=== PATIENT | male | born 1945 | race Caucasian/White ===

== ENCOUNTER 2018-07-04 14:13 | Outpatient (CLI) | payer MEDICARE, OTHER ==
--- NOTE | 2018-07-04 16:29 | RAD ---
LUMBAR SPINE RADIOGRAPHS TWO VIEWS: Date: 07-04-18 Provided Clinical History: Back pain. FINDINGS: No comparisons. Five non-rib bearing lumbar type vertebral bodies are present. Prominent superior endplate compressio n deformity involving L1. Vertebral body heights appear otherwise preserved. Lower lumbar facet degen erative changes are mild. Vascular calcification is seen. IMPRESSION: 1. Age indeterminate prominence superior endplate compression deformity of L1. 2. Lower lumbar spine facet arthritis. POS: [facility]
== END 2018-07-04 14:14 | disposition home or self-care (01) ==
LOC: SCSRAD 14:13
PROVIDERS: ATTEND Family Medicine
DX: S32.001S Stable burst fracture of unspecified lumbar vertebra, sequela (principal); Z11.59 Encounter for screening for other viral diseases; Z12.5 Encounter for screening for malignant neoplasm of prostate; M46.96 Unspecified inflammatory spondylopathy, lumbar region; M43.8X6 Other specified deforming dorsopathies, lumbar region
CPT/HCPCS: 36415; 72100; 87521; G0103

== ENCOUNTER 2018-08-22 09:26 | Outpatient (CLI) | payer MEDICARE, OTHER ==
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
== END 2018-08-22 09:27 | disposition home or self-care (01) ==
LOC: TBSIIMAG 09:26
PROVIDERS: ATTEND Neurological Surgery
DX: S32.011D Stable burst fracture of first lumbar vertebra, subsequent encounter for fracture with routine healing (principal); S22.081D Stable burst fracture of T11-T12 vertebra, subsequent encounter for fracture with routine healing; M47.816 Spondylosis without myelopathy or radiculopathy, lumbar region; M48.061 Spinal stenosis, lumbar region without neurogenic claudication
CPT/HCPCS: 72131

== ENCOUNTER 2018-09-04 08:02 | Outpatient (CLI) | payer MEDICARE, OTHER ==
--- NOTE | 2018-09-04 09:55 | HP ---
HISTORY OF PRESENT ILLNESS: Mr. Ken Medrano is a very pleasant 73-year-old gentleman, who presents to the [facility] for evaluation of a wound of the left inferior buttock subsequent to spontaneous rupture of an abscess. Another abscess of the left buttock was drained intraoperatively on 05/25/2018. The patient has been receiving dressing changes of Promogran for the wound of the left inferior buttock with the assistance of Home Health. The patient's states that Mr. Medrano will no longer be eligible for home health since he is participating in physical therapy. PAST MEDICAL HISTORY: 1. Diabetes mellitus, type 2. 2. Hypertension. 3. Coronary artery disease. 4. Anemia. PAST SURGICAL HISTORY: 1. Coronary artery bypass grafting x3/aortic valve replacement. 2. Incision and drainage of abscess of left buttock at [facility] in [place], [place] on 05/26/2018. 3. Prostatectomy in 2007. MEDICATIONS: 1. Atorvastatin. 2. Coreg. 3. Lisinopril/HCTZ. 4. Multivitamin. 5. Vitamin D3. 6. Aspirin 81 mg. 7. NovoLog. 8. Levemir. ALLERGIES: NO KNOWN DIAGNOSED ALLERGIES. SOCIAL HISTORY: Social history is negative for tobacco or EtOH use. FAMILY HISTORY: Family history is negative for diabetes mellitus or coronary artery disease. PHYSICAL EXAMINATION: VITAL SIGNS: Temperature 98.0, pulse 60, respirations 21, blood pressure 133/ 71. Accu-Chek 180. GENERAL: A 73-year-old gentleman, sitting on chair in examination room, in no acute distress. HEENT: Normocephalic and atraumatic. NECK: No nuchal rigidity. CHEST: Clear to auscultation. CV: Regular rate and rhythm. ABDOMEN: Soft. EXTREMITIES: No clubbing or cyanosis. NEUROLOGIC: Grossly nonfocal. BACK: A wound of the left inferior buttock is present, which measures approximately 0.8 x 0.2 cm. The depth of the wound is approximately 0.8 cm. Granulation tissue is present within the wound margins. Nonviable tissue present within the wound margins was debrided with an excisional full-thickness debridement. Moderate serous drainage is associated with the wound. No purulent drainage is associated with the wound. No erythema of the skin surrounding the wound is present. No maceration of the skin of the periwound is noted. ASSESSMENT AND PLAN: 1. Left inferior buttock wound as described above. Dressing changes of Promogran and Allevyn Border will be continued 3 times per week after cleansing and irrigation with the assistance of the patient's . No antibiotics will be prescribed today based upon the appearance of the wound. I will see Mr. Medrano again in 1 to 2 weeks. 2. Diabetes mellitus. The patient's Accu-Chek in clinic today is 180. The patient has been reminded that for optimal wound healing his blood glucoses should remain below 150. 3. Hypertension. 4. Coronary artery disease. 5. Anemia. Job ID: [id number] MTDD
[2018-09-04] MEDS ORDERED: Sodium Chloride 0.9% 15 ML NEB ONE (15:00)
== END 2018-09-04 08:03 | disposition home or self-care (01) ==
LOC: WCC 08:02
PROVIDERS: ATTEND Family Medicine
DX: T81.89XD Other complications of procedures, not elsewhere classified, subsequent encounter (principal); I25.10 Atherosclerotic heart disease of native coronary artery without angina pectoris; D64.9 Anemia, unspecified; I10 Essential (primary) hypertension; E11.9 Type 2 diabetes mellitus without complications
CPT/HCPCS: 11042; 97139; G0463; 99203; A4218

== ENCOUNTER 2018-09-18 11:04 | Outpatient (CLI) | payer MEDICARE, OTHER ==
--- NOTE | 2018-09-18 13:32 | PRG ---
DATE OF SERVICE: 09/18/2018 HISTORY: Mr. Ken Medrano is a very pleasant 73-year-old gentleman, accompanied by his , who presents to the [facility] Center for evaluation of a wound of the left inferior buttock subsequent to spontaneous rupture of an abscess. Another abscess of the left buttock was drained intraoperatively on 05/25/2018. Prior to being seen in the Wound Center, the patient had been receiving dressing changes of Promogran for the wound of the left inferior buttock with the assistance of Home Health. After being seen in the Wound Center, dressing changes of Promogran were continued 3 times per week after cleansing and irrigation with the assistance of the patient's . PHYSICAL EXAMINATION: VITAL SIGNS: Temperature 97.8, pulse 60, respirations 16, blood pressure 170/76. Accu-Chek 160. BACK: The wound of the left inferior buttock has healed completely. ASSESSMENT AND PLAN: 1. Left anterior buttock wound as stated above. The wound has completely healed. Dressing changes will be discontinued. Mr. Medrano will be discharged from clinic today with followup on a p.r.n. basis. 2. Diabetes mellitus. The patient's Accu-Chek in clinic today is 160. 3. Hypertension. 4. Coronary artery disease. 5. Anemia. Job ID: [id number]
== END 2018-09-18 11:05 | disposition home or self-care (01) ==
LOC: WCC 11:04
PROVIDERS: ATTEND Family Medicine
DX: S31.829D Unspecified open wound of left buttock, subsequent encounter (principal); E11.9 Type 2 diabetes mellitus without complications; I10 Essential (primary) hypertension; I25.10 Atherosclerotic heart disease of native coronary artery without angina pectoris; D64.9 Anemia, unspecified

== ENCOUNTER 2018-09-28 14:44 | Outpatient (CLI) | payer MEDICARE, OTHER ==
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
== END 2018-09-28 14:45 | disposition home or self-care (01) ==
LOC: TBSIIMAG 14:44
PROVIDERS: ATTEND Neurological Surgery
DX: S22.088A Other fracture of T11-T12 vertebra, initial encounter for closed fracture (principal); M47.814 Spondylosis without myelopathy or radiculopathy, thoracic region; S32.011A Stable burst fracture of first lumbar vertebra, initial encounter for closed fracture
CPT/HCPCS: 72072; 72100

== ENCOUNTER 2019-03-27 20:30 | Outpatient (CLI) | payer MEDICARE, OTHER | END 2019-03-27 20:31 | disposition home or self-care (01) | LOC: SLEEPLAB 20:30 | PROVIDERS: ATTEND Otolaryngology Plastic Surgery within the Head & Neck | DX: G47.33 Obstructive sleep apnea (adult) (pediatric) (principal); G47.9 Sleep disorder, unspecified; R06.83 Snoring; R53.83 Other fatigue; G47.00 Insomnia, unspecified; G47.10 Hypersomnia, unspecified; E11.9 Type 2 diabetes mellitus without complications; I10 Essential (primary) hypertension; I25.10 Atherosclerotic heart disease of native coronary artery without angina pectoris; G47.31 Primary central sleep apnea | CPT/HCPCS: 95811 ==

== ENCOUNTER 2019-10-08 08:54 | Outpatient (CLI) | payer MEDICARE, OTHER ==
--- NOTE | 2019-10-08 09:38 | RAD ---
EXAM: Chest 2 views: HISTORY: Cough congestion flulike symptoms COMPARISON: None. FINDINGS: Postop midline sternotomy and aortic valvular replacement. Heart size:Within normal limits. Lungs:Clear of acute process. Atherosclerotic changes of the aorta. No confluent pneumonia, overt edema, pleural effusion, pneumothorax, or other significant acute proce ss. IMPRESSION: Stable exam. Atherosclerosis of the aorta. No acute intrathoracic disease.
== END 2019-10-08 08:55 | disposition home or self-care (01) ==
LOC: SCSRAD 08:54
PROVIDERS: ATTEND Family Medicine
DX: R05 Cough (principal); I70.0 Atherosclerosis of aorta
CPT/HCPCS: 71046

== ENCOUNTER 2024-08-03 11:26 | Outpatient (CLI) | payer MEDICARE | END 2024-08-03 11:27 | disposition home or self-care (01) | LOC: SCSRAD 11:26 | PROVIDERS: ATTEND Family Medicine | DX: R51.9 Headache, unspecified (principal) | CPT/HCPCS: 71046 ==